=== PATIENT | male | born 1995 | race Two or more races ===

== ENCOUNTER 2017-08-23 12:48 | Emergency (ER) | payer OTHER ==
[~2017-08-23] VITALS: Ht 185.4 cm; Wt 115.1 kg
[~2017-08-23 12:48] MED LIST: CIPRO500 MG PO; NOHOMEMEDS
[2017-08-23] MEDS ORDERED: PEPCID20 MG PO (13:19)
[2017-08-23] MEDS ORDERED: MEDROL DOSEPAK4 MG PO (13:19)
[2017-08-23] MEDS ORDERED: CORTIZONE-10 PL57 GM TP (13:19)
[2017-08-23] MEDS ORDERED: ATARAX,VISTARIL50 MG PO (13:19)
[2017-08-23 14:15] VITALS: BP 127/85
== END 2017-08-23 14:15 | disposition home or self-care (01) ==
LOC: EME 12:48
DX: L23.7 Allergic contact dermatitis due to plants, except food (principal)
CPT/HCPCS: 99281; 99284; J7512; Q0177